=== PATIENT | female | born 1975 | race Caucasian/White ===

== ENCOUNTER 2016-12-06 12:26 | Emergency (ER) | payer OTHER ==
[~2016-12-06] VITALS: Ht 147.3 cm; Wt 97.0 kg
[2016-12-06] MEDS ORDERED: ONDANSETRON 2MG/ML, 2ML ONE ×2 (13:57→15:31)
[2016-12-06] MEDS ORDERED: MORPHINE SULFATE 4 MG/ML, 1ML ONE ×2 (13:57→15:31)
[2016-12-06] MEDS ORDERED: FAMOTIDINE 20 MG/2 ML ONE (13:57)
[2016-12-06] MEDS ORDERED: FAMOTIDINE 20 MG/2 ML IVP ONE (14:00)
[2016-12-06] MEDS ORDERED: ONDANSETRON 2MG/ML, 2ML IVPush ONE ×2 (14:00→15:30)
[2016-12-06] MEDS ORDERED: SODIUM CHLORIDE FLUSH 10ML SYR IVF ONE (14:00)
[2016-12-06] MEDS ORDERED: SODIUM CHLORIDE 0.9% 1,000ML IVBOLUS ONE (14:00)
[2016-12-06] MEDS: MORPHINE SULFATE 4 MG/ML, 1ML IVPush PRN ×2 (14:04→16:29)
[2016-12-06 14:05] LABS: ASPARTATE AMINO TRANSFERASE 13 U/L (15-37); BLOOD UREA NITROGEN 22 mg/dL (7-18)
[2016-12-06] MEDS ORDERED: OMNIPAQUE 350 MG/ML, 100ML BOTTLE ONE (16:09)
[2016-12-06 17:20] VITALS: BP 141/91
== END 2016-12-06 17:22 | disposition home or self-care (01) ==
LOC: ED 16:11
DX: A08.4 Viral intestinal infection, unspecified (principal); E86.0 Dehydration; N28.1 Cyst of kidney, acquired
CPT/HCPCS: 36415; 74177; 76700; 80053; 81001; 83690; 84703; 85025; 87086; 96361; 96374; 96375; 96376; 99285; J2405; J7030; Q9967; S0028

== ENCOUNTER 2017-08-06 06:19 | Emergency (ER) | payer OTHER ==
[~2017-08-06] VITALS: Ht 149.9 cm; Wt 96.4 kg
[2017-08-06] MEDS ORDERED: MORPHINE SULFATE 4 MG/ML, 1ML ONE (06:52)
[2017-08-06] MEDS ORDERED: ONDANSETRON 2MG/ML, 2ML ONE (06:53)
[2017-08-06] MEDS ORDERED: SODIUM CHLORIDE FLUSH 10ML SYR IVF ONE (07:00)
[2017-08-06] MEDS ORDERED: MORPHINE SULFATE 4 MG/ML, 1ML IVPush PRN (07:00)
[2017-08-06] MEDS ORDERED: ONDANSETRON 2MG/ML, 2ML IVPush ONE (07:00)
[2017-08-06] MEDS ORDERED: SODIUM CHLORIDE 0.9% 1,000ML IVBOLUS ONE (07:00)
[2017-08-06] MEDS ORDERED: METF500T27 PO (07:04)
[2017-08-06 07:11] LABS: BASOPHILS # (AUTO) 0.07 x10^3/uL (0-0.1); BASOPHILS % (AUTO) 1 % (0-1); EOSINOPHILS # (AUTO) 0.38 x10^3/uL (0-0.4); EOSINOPHILS % (AUTO) 3 % (1-7); LYMPHOCYTES # (AUTO) 4.11 x10^3/uL (1-3.4); LYMPHOCYTES % (AUTO) 31 % (22-44); MD NO; MEAN CORPUSCULAR HEMOGLOBIN 29.7 pg (27.0-34.8); MEAN CORPUSCULAR HGB CONC 33.4 g/dL (32.4-35.8); MEAN CORPUSCULAR VOLUME 88.8 fL (80-100); MEAN PLATELET VOLUME 6.6 fL (7.4-10.4); MONOCYTES # (AUTO) 0.66 x10^3/uL (0.2-0.8); MONOCYTES % (AUTO) 5 % (2-9); NEUTROPHILS % (AUTO) 60 % (42-75); PLATELET COUNT 556 x10^3/uL (130-400); RED BLOOD COUNT 4.32 x10^6/uL (3.82-5.3); RED CELL DISTRIBUTION WIDTH 14.1 % (9.6-15.2)
[2017-08-06 07:26] LABS: ALANINE AMINOTRANSFERASE 21 U/L (12-78); ALBUMIN 3.2 g/dL (3.4-5.0); ANION GAP 9 mmol/L (5-15); CALCIUM 7.9 mg/dL (8.5-10.1); CHLORIDE 108 mmol/L (98-107); CREATININE 0.52 mg/dL (0.55-1.02)
[2017-08-06 07:28] LABS: ALKALINE PHOSPHATASE 111 U/L (45-117); BILIRUBIN,TOTAL 1.2 mg/dL (0.2-1.0); TOTAL PROTEIN 7.7 g/dL (6.4-8.2)
[2017-08-06] MEDS ORDERED: OMNIPAQUE 350 MG/ML, 100ML BOTTLE ONE (07:55)
[2017-08-06 08:35] LABS: MICROSCOPIC INDICATED
[2017-08-06 08:44] LABS: CULTURE INDICATED? NO
[2017-08-06 09:00] VITALS: BP 130/64
== END 2017-08-06 09:31 | disposition home or self-care (01) ==
LOC: ED 08:07
DX: R10.11 Right upper quadrant pain (principal); E11.9 Type 2 diabetes mellitus without complications
CPT/HCPCS: 36415; 74177; 80053; 81001; 83605; 83690; 85025; 96361; 96374; 96375; 99285; J2405; J7030; Q9967

== ENCOUNTER 2018-06-16 18:23 | Emergency (ER) | payer OTHER ==
[~2018-06-16] VITALS: Ht 147.3 cm; Wt 96.5 kg
[~2018-06-16 18:23] MED LIST: METF500T27 PO
[2018-06-16 18:54] LABS: MEAN CORPUSCULAR HEMOGLOBIN 29.9 pg (27.0-34.8); MEAN CORPUSCULAR HGB CONC 33.4 g/dL (32.4-35.8); MEAN CORPUSCULAR VOLUME 89.7 fL (80-100); MEAN PLATELET VOLUME 7.4 fL (7.4-10.4); PLATELET COUNT 431 x10^3/uL (130-400); RED BLOOD COUNT 4.29 x10^6/uL (3.82-5.3); RED CELL DISTRIBUTION WIDTH 14.3 % (9.6-15.2)
[2018-06-16 19:07] LABS: ALANINE AMINOTRANSFERASE 22 U/L (12-78); ALBUMIN 3.4 g/dL (3.4-5.0); ANION GAP 9 mmol/L (5-15); CALCIUM 8.7 mg/dL (8.5-10.1); CHLORIDE 108 mmol/L (98-107); CREATININE 0.69 mg/dL (0.55-1.02)
[2018-06-16 19:10] LABS: ALKALINE PHOSPHATASE 118 U/L (45-117); BILIRUBIN,TOTAL 0.9 mg/dL (0.2-1.0); TOTAL PROTEIN 7.9 g/dL (6.4-8.2)
[2018-06-16 19:13] LABS: MD YES
[2018-06-16 19:14] LABS: <RBC MORPHOLOGY> NORMAL; EOS#(MANUAL) 0.19 x10^3/uL (0.0-0.4); EOS% (MANUAL) 1 % (1-7); LYMPH#(MANUAL) 7.11 x10^3/uL (1-3.4); LYMPHS% (MANUAL) 38 % (22-44); MONOS#(MANUAL) 1.87 x10^3/uL (0.3-2.7); MONOS% (MANUAL) 10 % (2-9); SEG#(MANUAL) 9.54 x10^3/uL (1.8-6.8); SEGS% (MANUAL) 51 % (42-75)
[2018-06-16 19:15] LABS: <PLATELET ESTIMATE> INCREASED; <PLT MORPHOLOGY> NORMAL PLT MORPH
[2018-06-16 19:42] LABS: HCG UR SG 1.017 (1.003-1.030); MICROSCOPIC AUTO
[2018-06-16 19:52] LABS: CULTURE INDICATED? NO
[2018-06-16] MEDS ORDERED: PHENAZOPYRIDINE 200 MG TABLET ONE (19:53)
[2018-06-16] MEDS ORDERED: CEFTRIAXONE PMX 1GM/50ML 50 ML ONE (19:53)
[2018-06-16] MEDS ORDERED: KETOROLAC 30 MG/1 ML ONE (19:53)
[2018-06-16] MEDS ORDERED: ONDANSETRON 2MG/ML, 2ML ONE (19:53)
[2018-06-16] MEDS ORDERED: CEFTRIAXONE 1,000 MG IM ONE (20:00)
[2018-06-16] MEDS ORDERED: KETOROLAC 30 MG/1 ML IM ONE (20:00)
[2018-06-16] MEDS ORDERED: CEFTRIAXONE PMX 1GM/50ML 50 ML IV ONE (20:00)
[2018-06-16] MEDS ORDERED: KETOROLAC 30 MG/1 ML IVPush ONE (20:00)
[2018-06-16] MEDS ORDERED: PHENAZOPYRIDINE 200 MG TABLET PO ONE (20:00)
[2018-06-16] MEDS ORDERED: ONDANSETRON ODT 4 MG PO ONE (20:00)
[2018-06-16] MEDS ORDERED: ONDANSETRON 2MG/ML, 2ML IVPush ONE (20:30)
[2018-06-16] MEDS ORDERED: METF500T17 PO (21:18)
[2018-06-16 21:41] VITALS: BP 116/52
== END 2018-06-16 21:43 | disposition home or self-care (01) ==
LOC: ED 20:17
DX: R10.30 Lower abdominal pain, unspecified (principal); R11.2 Nausea with vomiting, unspecified; E11.9 Type 2 diabetes mellitus without complications
CPT/HCPCS: 36415; 74176; 80053; 81001; 81025; 83690; 85025; 96365; 96375; 99284; J0696; J1885; J2405

== ENCOUNTER 2018-10-31 07:16 | Emergency (ER) | payer OTHER ==
[~2018-10-31] VITALS: Ht 162.6 cm; Wt 94.9 kg
[~2018-10-31 07:16] MED LIST changes: +METF500T17 PO
--- NOTE | 2018-10-31 07:30 | NUR ---
Mongolian speaking. Pt presents with c/o right flank pain x 3 days. Hx of renal stones. Pt reports diarrhea last night and vomitting this morning. Pt accompanied by her daughter. Right flank pain 710.
[2018-10-31] MEDS ORDERED: ONDANSETRON 2MG/ML, 2ML ONE (07:42)
[2018-10-31] MEDS ORDERED: KETOROLAC 30 MG/1 ML ONE (07:42)
[2018-10-31 07:54] LABS: BASOPHILS # (AUTO) 0.16 x10^3/uL (0-0.1); BASOPHILS % (AUTO) 1 % (0-1); EOSINOPHILS % (AUTO) 2 % (1-7); LYMPHOCYTES # (AUTO) 3.65 x10^3/uL (1-3.4); LYMPHOCYTES % (AUTO) 27 % (22-44); MD NO; MEAN CORPUSCULAR HEMOGLOBIN 30.3 pg (27.0-34.8); MEAN CORPUSCULAR HGB CONC 33.9 g/dL (32.4-35.8); MEAN CORPUSCULAR VOLUME 89.5 fL (80-100); MEAN PLATELET VOLUME 6.4 fL (7.4-10.4); MONOCYTES # (AUTO) 0.77 x10^3/uL (0.2-0.8); MONOCYTES % (AUTO) 6 % (2-9); NEUTROPHILS # (AUTO) 8.86 x10^3/uL (1.8-6.8); NEUTROPHILS % (AUTO) 65 % (42-75); PLATELET COUNT 601 x10^3/uL (130-400); RED BLOOD COUNT 4.48 x10^6/uL (3.82-5.3); RED CELL DISTRIBUTION WIDTH 14.2 % (9.6-15.2)
[2018-10-31] MEDS ORDERED: KETOROLAC 30 MG/1 ML IVPush ONE (08:00)
[2018-10-31] MEDS ORDERED: ONDANSETRON 2MG/ML, 2ML IVPush ONE (08:00)
[2018-10-31] MEDS ORDERED: SODIUM CHLORIDE FLUSH 10ML SYR IVF ONE (08:00)
[2018-10-31] MEDS ORDERED: MORPHINE SULFATE 4 MG/ML, 1ML IVPush PRN (08:00)
--- NOTE | 2018-10-31 08:00 | NUR ---
IV placed, Toradol provided. Will reassess pain in 15-20 min. [place] provided.
[2018-10-31 08:05] LABS: ALANINE AMINOTRANSFERASE 19 U/L (12-78); ALBUMIN 3.4 g/dL (3.4-5.0); ANION GAP 7 mmol/L (5-15); CALCIUM 8.7 mg/dL (8.5-10.1); CHLORIDE 107 mmol/L (98-107)
[2018-10-31 08:11] LABS: ALKALINE PHOSPHATASE 109 U/L (45-117); CREATININE 0.73 mg/dL (0.55-1.02); TOTAL PROTEIN 7.9 g/dL (6.4-8.2)
--- NOTE | 2018-10-31 08:27 | NUR ---
pt reports pain has worsened to 10/10
[2018-10-31] MEDS ORDERED: MORPHINE SULFATE 4 MG/ML, 1ML ONE (08:32)
--- NOTE | 2018-10-31 08:37 | NUR ---
pt medicated for pain. see emar. ultrasound in room with pt. will reassess pain.
--- NOTE | 2018-10-31 08:51 | NUR ---
pt reports pain has improved. pain rated 6/10.
[2018-10-31 09:52] LABS: MICROSCOPIC INDICATED
--- NOTE | 2018-10-31 09:55 | NUR ---
pt resting on gurney. pain 5/10 and described by the patient as discomfort due to a bloating sensation in the abdomen. no acute distress noted at this time.
[2018-10-31 09:57] LABS: CULTURE INDICATED? YES
--- NOTE | 2018-10-31 10:23 | NUR ---
Pt resting on aundrea. additional test ordered by ED MD. awaiting results and disposition.
--- NOTE | 2018-10-31 11:02 | NUR ---
pt resting on gurney. pt reports pain has decreased to 3/10. pt reports feeling bloated in abdomen. no acute distress noted. will continue to monitor.
--- NOTE | 2018-10-31 11:54 | NUR ---
RN ROBERT IS ASSISTING THE PRIMARY CARE RN WITH THE PT.'S DISCHARGE. PT.'S IV WAS DCD',CATH TIP INTACT. PRESSURE HELD WITH HEMOSTASIS ACHIEVED. PT. WAS GIVEN DISCHARGE INSTRUCTIONS AND A SCRIPT. UNDERSTANDING WAS VERBALIZED ALONG WITH WILLINGNESS TO COMPLY. PT. WAS AMBULATORY TO THE DISCHARGE DESK. VSS.
[2018-10-31 11:56] VITALS: BP 140/64
--- NOTE | 2018-10-31 11:58 | NUR ---
PT. REPORTS RELIEF FROM MEDS AT THE TIME OF DISCHARGE.
== END 2018-10-31 11:59 | disposition home or self-care (01) ==
LOC: ED 10:12
DX: N30.00 Acute cystitis without hematuria (principal); E11.9 Type 2 diabetes mellitus without complications; E66.9 Obesity, unspecified
CPT/HCPCS: 36415; 74021; 76700; 80053; 81001; 83690; 84703; 85025; 87086; 96374; 96375; 99284; J1885; J2405

== ENCOUNTER 2020-04-17 10:30 | Emergency (ER) | payer OTHER ==
[~2020-04-17] VITALS: Ht 149.9 cm; Wt 95.0 kg
--- NOTE | 2020-04-17 11:58 | NUR ---
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
[2020-04-17 12:04] LABS: ALANINE AMINOTRANSFERASE 17 U/L (12-78); ALBUMIN 3.5 g/dL (3.4-5.0); ANION GAP 7 mmol/L (5-15); CALCIUM 8.8 mg/dL (8.5-10.1); CHLORIDE 107 mmol/L (98-107); CREATININE 0.57 mg/dL (0.55-1.02)
[2020-04-17 12:08] LABS: ALKALINE PHOSPHATASE 114 U/L (45-117); BILIRUBIN,TOTAL 1.3 mg/dL (0.2-1.0); TOTAL PROTEIN 8.3 g/dL (6.4-8.2)
[2020-04-17 12:12] LABS: BASOPHILS % (AUTO) 1 % (0-1); EOSINOPHILS % (AUTO) 3 % (1-7); LYMPHOCYTES % (AUTO) 34 % (22-44); MEAN CORPUSCULAR HEMOGLOBIN 28.6 pg (27.0-34.8); MEAN CORPUSCULAR HGB CONC 32.8 g/dL (32.4-35.8); MEAN PLATELET VOLUME 6.6 fL (7.4-10.4); MONOCYTES % (AUTO) 5 % (2-9); NEUTROPHILS % (AUTO) 57 % (42-75); PLATELET COUNT 596 x10^3/uL (130-400); RED BLOOD COUNT 4.69 x10^6/uL (3.82-5.3); RED CELL DISTRIBUTION WIDTH 14.7 % (9.6-15.2)
[2020-04-17 12:13] LABS: MD NO
--- NOTE | 2020-04-17 12:20 | NUR ---
URINE COLLECTED/SENT TO LAB. VSS/UPDATED IN COMPUTER. PT STATES PAIN TO R FLANK, RADIATING TO R PERIAREA WITH PRESSURE TO PUBIC AREA. PT ALSO STATES PAIN WITH URINATION, INCREASED FREQUENCY WITH SMALL AMOUNTS. CALL LIGHT WITHIN REACH, FAMILY AT BS.
--- NOTE | 2020-04-17 13:13 | NUR ---
CALL TO LAB TO INQUIRE ON DELAY FOR UA. 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
[2020-04-17 13:28] LABS: MICROSCOPIC AUTO
[2020-04-17] MEDS ORDERED: ONDANSETRON 2MG/ML, 2ML IVPush ONE (13:30)
[2020-04-17] MEDS ORDERED: SODIUM CHLORIDE 0.9% 1,000ML IVBOLUS ONE (13:30)
[2020-04-17] MEDS ORDERED: MORPHINE SULFATE 4 MG/ML, 1ML IVPush PRN (13:30)
[2020-04-17] MEDS ORDERED: MORPHINE SULFATE 4 MG/ML, 1ML ONE (13:40)
[2020-04-17] MEDS ORDERED: ONDANSETRON 2MG/ML, 2ML ONE (13:40)
--- NOTE | 2020-04-17 13:49 | NUR ---
IV PLACED, MEDS GIVEN PER ERP ORDER FOR 9/10 R FLANK AND RLOWER ABD PAIN AND NAUSEA. PT TO CT.
[2020-04-17] MEDS ORDERED: OMNIPAQUE 350 MG/ML, 100ML BOTTLE ONE (14:08)
--- NOTE | 2020-04-17 14:38 | NUR ---
PT STATES PAIN BETTER, 09/03. PT SLEEPING INTERMITTENTLY. CT RESULT BACK, PT FOR RECHECK.
--- NOTE | 2020-04-17 14:47 | NUR ---
REPORT RECEIVED FROM RICK MARION. PLAN OF CARE DISCUSSED
--- NOTE | 2020-04-17 14:50 | NUR ---
REPORT TO SONDRA, TRANSFER OF CARE AT THIS TIME
[2020-04-17] MEDS ORDERED: CEFTRIAXONE PMX 1GM/50ML 50 ML IV ONE (15:00)
[2020-04-17] MEDS ORDERED: CEFTRIAXONE 1,000 MG IM ONE (15:00)
[2020-04-17] MEDS ORDERED: CEFTRIAXONE PMX 1GM/50ML 50 ML ONE (15:00)
--- NOTE | 2020-04-17 15:58 | NUR ---
Patient/Caregiver given discharge instructions and they have confirmed that they understand the instructions. Patient ambulatory with steady gait.
[2020-04-17 15:59] VITALS: BP 152/78
== END 2020-04-17 16:01 | disposition home or self-care (01) ==
LOC: ED 12:59
DX: N39.0 Urinary tract infection, site not specified (principal); N10 Acute pyelonephritis; R11.2 Nausea with vomiting, unspecified; I10 Essential (primary) hypertension
CPT/HCPCS: 36415; 74177; 76700; 80053; 81001; 83690; 84703; 85025; 87086; 96361; 96365; 96375; 99285; J0696; J2270; J2405; J7030; Q9967

== ENCOUNTER 2020-06-03 16:45 | Emergency (ER) | payer BC, OTHER ==
[~2020-06-03] VITALS: Ht 144.8 cm; Wt 98.6 kg
[2020-06-03 18:52] LABS: BASOPHILS % (AUTO) 1 % (0-1); EOSINOPHILS % (AUTO) 2 % (1-7); LYMPHOCYTES % (AUTO) 31 % (22-44); MEAN CORPUSCULAR HEMOGLOBIN 28.8 pg (27.0-34.8); MEAN CORPUSCULAR HGB CONC 32.8 g/dL (32.4-35.8); MEAN PLATELET VOLUME 6.6 fL (7.4-10.4); MONOCYTES % (AUTO) 5 % (2-9); NEUTROPHILS % (AUTO) 61 % (42-75); PLATELET COUNT 562 x10^3/uL (130-400); RED BLOOD COUNT 4.25 x10^6/uL (3.82-5.3); RED CELL DISTRIBUTION WIDTH 14.7 % (9.6-15.2)
[2020-06-03 18:55] LABS: ALANINE AMINOTRANSFERASE 22 U/L (12-78); ALBUMIN 3.3 g/dL (3.4-5.0); CALCIUM 8.7 mg/dL (8.5-10.1); CREATININE 0.66 mg/dL (0.55-1.02)
[2020-06-03 18:58] LABS: MD NO
[2020-06-03 19:00] LABS: ALKALINE PHOSPHATASE 118 U/L (45-117); ANION GAP 5 mmol/L (5-15); BILIRUBIN,TOTAL 0.6 mg/dL (0.2-1.0); CHLORIDE 106 mmol/L (98-107); TOTAL PROTEIN 8.1 g/dL (6.4-8.2)
--- NOTE | 2020-06-03 19:17 | NUR ---
NAD, sent to br for urine sample. Blood drawn already, walks with steady gait.
--- NOTE | 2020-06-03 19:17 | NUR ---
pt to room from lobby
--- NOTE | 2020-06-03 19:24 | NUR ---
Urine sent, pt has pain more to Right flank area which radiates to lower back.
[2020-06-03 19:32] LABS: MICROSCOPIC AUTO
[2020-06-03] MEDS ORDERED: KETOROLAC 60 MG/2 ML ONE (19:47)
[2020-06-03] MEDS ORDERED: MAALOX/HYOSCYAMINE/LIDOCAINE 45 ML BTL ONE (19:47)
--- NOTE | 2020-06-03 19:59 | NUR ---
MEDICATED FOR PAIN AT THIS TIME
[2020-06-03] MEDS ORDERED: KETOROLAC 30 MG/1 ML IM ONE (20:00)
[2020-06-03] MEDS ORDERED: MAALOX/HYOSCYAMINE/LIDOCAINE 45 ML BTL PO ONE (20:00)
[2020-06-03] MEDS ORDERED: CEFTRIAXONE 1,000 MG ONE (20:19)
[2020-06-03] MEDS ORDERED: CEFTRIAXONE 1,000 MG IM ONE (20:30)
--- NOTE | 2020-06-03 21:28 | NUR ---
DC FOR PRIMARY NURSE, PT AND DAUGHTER VERBALIZE UNDERSTANDING OF ALL INSTRUCT AND RX. TO FU WITH PCP RETURN TO ER IF WORSE OR CONCERNS. vss. AMBULATORY.
[2020-06-03 21:55] VITALS: BP 125/88
== END 2020-06-03 21:55 | disposition home or self-care (01) ==
LOC: ED 21:09
DX: N30.01 Acute cystitis with hematuria (principal); K59.00 Constipation, unspecified; M54.5 Low back pain; R10.9 Unspecified abdominal pain; I10 Essential (primary) hypertension; E11.9 Type 2 diabetes mellitus without complications; Z90.49 Acquired absence of other specified parts of digestive tract
CPT/HCPCS: 36415; 74021; 80053; 81001; 83690; 84703; 85025; 87086; 96372; 99284; J0696; J1885